=== PATIENT | male | born 1960 | race Caucasian/White ===

== ENCOUNTER 2017-07-09 02:53 | Inpatient (IN) | payer OTHER ==
[~2017-07-09] VITALS: Ht 172.7 cm; Wt 81.0 kg
[2017-07-09 03:41] LABS: HEMATOCRIT 46.4 % (38.0-50.0); MCH 30.1 PG (29.0-34.0); MCHC 34.3 G/DL (30.0-36.0); MCV 87.9 FL (86-99); MEAN PLAT.VOLUME 10.2 uM^3 (9.0-12.4); PLATELET COUNT 181 K/uL (156-360); RBC DIS.WIDTH-CV 12.7 % (11.8-14.6); RBC DIS.WIDTH-SD 40.8 % (39-53); RED BLOOD COUNT 5.28 M/uL (4.00-5.50); WHITE BLOOD COUNT 14.2 K/uL (4.1-10.2)
[2017-07-09 03:49] LABS: D-DIMER ELISA < 150.00 ng/mLDDU (<230)
[2017-07-09 03:55] LABS: CHLORIDE 105 mEq/L (99-109); POTASSIUM 4.1 mEq/L (3.7-5.4); SODIUM 140 mEq/L (136-147)
[2017-07-09 03:57] LABS: GLUCOSE 127 mg/dL (70-99)
[2017-07-09 03:59] LABS: ANION GAP 10 MEQ/L (2-14); TOTAL BILIRUBIN 1.7 mg/dL (0.0-1.0)
[2017-07-09 04:01] LABS: ALKALINE PHOSPHATASE 57 IU/L (3-129); GFR ESTIMATE (CALCULATED) > 59 mL/min/
[2017-07-09 04:02] LABS: UREA NITROGEN (BUN) 11 mg/dL (9-23)
[2017-07-09] MEDS ORDERED: ADVAIR 500/501 DISK IH (05:39)
[2017-07-09] MEDS ORDERED: GEMFIBROZIL600 MG PO (05:39)
[2017-07-09] MEDS ORDERED: LOSARTAN-HCTZ1 EAC2 PO (05:39)
[2017-07-09] MEDS ORDERED: METFORMIN HCL500 MG PO (05:39)
[2017-07-09] MEDS ORDERED: PROAIR HFA8.5 GM IH (05:39)
[2017-07-09 07:07] LABS: ABS NEUTROPHIL COUNT 11.6; EOSINOPHIL ABS CT 0; LYMPHOCYTES 13.1 % (15.0-45.0); PLAT.SUFFICIENCY ADEQUATE; SEG.NEUTROPHILS 81.6 % (46.0-76.0)
[2017-07-09 07:23] LABS: TROP-I INTERPRETATION NEGATIVE; TROPONIN-I 0.01 ng/mL (0.0-0.30)
[2017-07-09 09:03] LABS: POINT-OF-CARE METER ID UU13113747
[2017-07-09] MEDS ORDERED: ALEVE220 M2 PO (10:19)
[2017-07-09] MEDS ORDERED: AUGMENTIN875 MG PO (10:19)
[2017-07-09] MEDS ORDERED: MEDROL DOSEPAK4 MG PO (10:19)
[2017-07-09] MEDS ORDERED: CRANBERRY TABL1 EACH PO (10:20)
[2017-07-09] MEDS ORDERED: LO-DOSE ASPIRIN81 M2 PO (10:20)
[2017-07-09 11:34] VITALS: BP 152/93
[2017-07-09 11:37] LABS: POINT-OF-CARE METER ID UU14174225
[2017-07-09 12:30] LABS: TROP-I INTERPRETATION NEGATIVE; TROPONIN-I 0.01 ng/mL (0.0-0.30)
[2017-07-09 14:48] LABS: MAGNESIUM 1.8 mg/dl (1.3-2.7)
[2017-07-09 16:17] VITALS: BP 151/86
[2017-07-09 17:41] LABS: POINT-OF-CARE METER ID UU14174225
[2017-07-09 18:04] LABS: TROP-I INTERPRETATION NEGATIVE; TROPONIN-I 0.01 ng/mL (0.0-0.30)
[2017-07-09 19:38] VITALS: BP 148/93
[2017-07-09 20:56] LABS: POINT-OF-CARE METER ID UU14188625
[2017-07-10 00:11] VITALS: BP 130/81
[2017-07-10 03:37] VITALS: BP 143/83
[2017-07-10 06:24] LABS: EOSINOPHIL (%) 0 % (0-5); HEMATOCRIT 48.3 % (38.0-50.0); IMMATURE GRANULOCYTE (%) 0.5 % (0.0-0.7); IMMATURE GRANULOCYTE COUNT 0.1 K/uL; INSTRUMENT ABS NEUTROPHIL CT 10.9 K/uL; LYMPHOCYTE COUNT 0.8 K/uL (1.0-2.8); MCH 29.4 PG (29.0-34.0); MCHC 33.3 G/DL (30.0-36.0); MCV 88.3 FL (86-99); MEAN PLAT.VOLUME 10.5 uM^3 (9.0-12.4); MONOCYTE (%) 3.6 % (3-12); MONOCYTE COUNT 0.4 K/uL (0-0.8); NEUTROPHIL (%) 88.9 % (45-76); NEUTROPHIL COUNT 10.9 K/uL (1.8-6.4); PLATELET COUNT 206 K/uL (156-360); RBC DIS.WIDTH-CV 12.8 % (11.8-14.6); RBC DIS.WIDTH-SD 41.4 % (39-53); RED BLOOD COUNT 5.47 M/uL (4.00-5.50); WHITE BLOOD COUNT 12.2 K/uL (4.1-10.2)
[2017-07-10 07:00] LABS: ANION GAP 14 MEQ/L (2-14); CHLORIDE 105 MEQ/L (99-109); GFR ESTIMATE (CALCULATED) > 59 mL/min/; GLUCOSE 147 mg/dL (70-99); POTASSIUM 4.1 MEQ/L (3.7-5.4); SAMPLE HEMOLYSIS CHECK 0; SAMPLE ICTERIC CHECK 0; SAMPLE LIPEMIA CHECK 0; SODIUM 140 MEQ/L (136-147); UREA NITROGEN (BUN) 17 mg/dL (9-23)
[2017-07-10 07:20] VITALS: BP 143/88
[2017-07-10 11:44] LABS: POINT-OF-CARE METER ID UU14188625
[2017-07-10 12:12] VITALS: BP 129/80
[2017-07-10 15:28] VITALS: BP 125/82
[2017-07-10 17:01] LABS: POINT-OF-CARE METER ID UU13113717
[2017-07-10 19:15] VITALS: BP 137/90
[2017-07-10 21:49] LABS: POINT-OF-CARE METER ID UU13113717
[2017-07-11 03:28] VITALS: BP 113/67
[2017-07-11 07:10] LABS: EOSINOPHIL (%) 0 % (0-5); HEMATOCRIT 43.3 % (38.0-50.0); IMMATURE GRANULOCYTE (%) 0.6 % (0.0-0.7); IMMATURE GRANULOCYTE COUNT 0.1 K/uL; INSTRUMENT ABS NEUTROPHIL CT 10.9 K/uL; LYMPHOCYTE COUNT 0.8 K/uL (1.0-2.8); MCH 30.2 PG (29.0-34.0); MCHC 33.7 G/DL (30.0-36.0); MCV 89.6 FL (86-99); MEAN PLAT.VOLUME 10.9 uM^3 (9.0-12.4); MONOCYTE (%) 5.2 % (3-12); MONOCYTE COUNT 0.7 K/uL (0-0.8); NEUTROPHIL (%) 87.6 % (45-76); NEUTROPHIL COUNT 10.9 K/uL (1.8-6.4); PLATELET COUNT 189 K/uL (156-360); RBC DIS.WIDTH-CV 13.1 % (11.8-14.6); RBC DIS.WIDTH-SD 42.8 % (39-53); RED BLOOD COUNT 4.83 M/uL (4.00-5.50); WHITE BLOOD COUNT 12.4 K/uL (4.1-10.2)
[2017-07-11 07:48] VITALS: BP 125/73
[2017-07-11 08:35] LABS: CHLORIDE 104 MEQ/L (99-109); GFR ESTIMATE (CALCULATED) > 59 mL/min/; GLUCOSE 122 mg/dL (70-99); SODIUM 138 MEQ/L (136-147)
[2017-07-11 08:44] LABS: MAGNESIUM 2.4 mg/dl (1.3-2.7); POTASSIUM 5.3 MEQ/L (3.7-5.4); UREA NITROGEN (BUN) 28 mg/dL (9-23)
[2017-07-11 09:05] LABS: POINT-OF-CARE METER ID UU14174225
[2017-07-11 11:38] VITALS: BP 121/87
[2017-07-11 12:14] LABS: POINT-OF-CARE METER ID UU14188625
[2017-07-11 16:24] LABS: POINT-OF-CARE METER ID UU14188625
[2017-07-11 19:40] VITALS: BP 111/69
[2017-07-11 21:29] LABS: POINT-OF-CARE METER ID UU14188625
[2017-07-11 23:33] VITALS: BP 112/73
[2017-07-12 04:06] VITALS: BP 120/81
[2017-07-12 07:22] LABS: POINT-OF-CARE METER ID UU14174225
[2017-07-12 07:32] VITALS: BP 127/79
[2017-07-12] MEDS ORDERED: METOPROLOL SUCC50 MG PO (11:26)
[2017-07-12] MEDS ORDERED: NICOTINE PATCH1 EAC2 TD (11:26)
[2017-07-12] MEDS ORDERED: PREDNISONE20 MG PO (11:26)
[2017-07-12 11:37] LABS: POINT-OF-CARE METER ID UU13113717
== END 2017-07-12 13:31 | disposition home or self-care (01) | DRG 191 ==
LOC: EME 02:53 → 5SOUTH 05:10 → EDOF 05:10 → ENRESERV 05:11 → 5SOUTH 11:08
PROVIDERS: Emergency Medicine; Hospitalist; Internal Medicine; Physician Assistant Medical
DX: J44.1 Chronic obstructive pulmonary disease with (acute) exacerbation (principal); J45.901 Unspecified asthma with (acute) exacerbation; I47.2 Ventricular tachycardia; R09.02 Hypoxemia; I10 Essential (primary) hypertension; E78.5 Hyperlipidemia, unspecified; E11.9 Type 2 diabetes mellitus without complications; F17.210 Nicotine dependence, cigarettes, uncomplicated; J30.2 Other seasonal allergic rhinitis; Z60.2 Problems related to living alone; Z79.51 Long term (current) use of inhaled steroids; M54.9 Dorsalgia, unspecified; Z82.49 Family history of ischemic heart disease and other diseases of the circulatory system; Z79.84 Long term (current) use of oral hypoglycemic drugs; Z79.82 Long term (current) use of aspirin
CPT/HCPCS: 71020; 80048; 80053; 82948; 83605; 83735; 84100; 84484; 85007; 85025; 85027; 85379; 87040; 87070; 87205; 93005; 93306; 94640; 94640 76; 94644; 99202; 99281; 99285; J0295; J0696; J1650; J1815; J2930; J7030; J7050; J7512

== ENCOUNTER 2017-08-12 09:00 | Inpatient (IN) | payer OTHER ==
[~2017-08-12] VITALS: Ht 172.7 cm; Wt 74.7 kg
[~2017-08-12 09:00] MED LIST: ADVAIR 500/501 DISK IH; ALEVE220 M2 PO; AUGMENTIN875 MG PO; CARVEDILOL3.125 MG PO; CRANBERRY TABL1 EACH PO; ENTRESTO 24 MG1 EACH PO; GEMFIBROZIL600 MG PO; LO-DOSE ASPIRIN81 M2 PO; LOSARTAN-HCTZ1 EAC2 PO; MEDROL DOSEPAK4 MG PO; METFORMIN HCL500 MG PO; METOPROLOL SUCC50 MG PO; NICOTINE PATCH1 EAC2 TD; PEPCID AC10 MG PO; PREDNISONE20 MG PO; PROAIR HFA8.5 GM IH; SPIRIVA RESPIMAT4 GM IH
[2017-08-12 10:22] LABS: POINT-OF-CARE METER ID UU13113696
[2017-08-12 15:00] VITALS: BP 129/68
[2017-08-12 19:30] VITALS: BP 136/66
[2017-08-12 23:30] VITALS: BP 137/72
[2017-08-13] VITALS (7 sets, daily range): BP systolic 120–194; BP diastolic 76–106
[2017-08-13 06:50] LABS: BASOPHIL COUNT 0.1 K/uL (0-0.1); EOSINOPHIL (%) 1.3 % (0-5); EOSINOPHIL COUNT 0.1 K/uL (0-0.3); HEMATOCRIT 47.5 % (38.0-50.0); IMMATURE GRANULOCYTE (%) 0.4 % (0.0-0.7); INSTRUMENT ABS NEUTROPHIL CT 6.1 K/uL; LYMPHOCYTE COUNT 1.8 K/uL (1.0-2.8); MCH 30.3 PG (29.0-34.0); MCHC 33.9 G/DL (30.0-36.0); MCV 89.5 FL (86-99); MEAN PLAT.VOLUME 10.3 uM^3 (9.0-12.4); MONOCYTE (%) 10.2 % (3-12); MONOCYTE COUNT 0.9 K/uL (0-0.8); NEUTROPHIL (%) 67.1 % (45-76); NEUTROPHIL COUNT 6.1 K/uL (1.8-6.4); PLATELET COUNT 205 K/uL (156-360); RBC DIS.WIDTH-CV 13.3 % (11.8-14.6); RBC DIS.WIDTH-SD 42.9 % (39-53); RED BLOOD COUNT 5.31 M/uL (4.00-5.50)
[2017-08-13 07:15] LABS: ANION GAP 8 MEQ/L (2-14); CHLORIDE 110 MEQ/L (99-109); GFR ESTIMATE (CALCULATED) > 59 mL/min/ (58.99-99999); GLUCOSE 96 mg/dL (70-99); POTASSIUM 4.5 MEQ/L (3.7-5.4); SAMPLE HEMOLYSIS CHECK 0; SAMPLE ICTERIC CHECK 0; SAMPLE LIPEMIA CHECK 0; SODIUM 142 MEQ/L (136-147); UREA NITROGEN (BUN) 9 mg/dL (9-23)
[2017-08-13] MEDS ORDERED: TAMSULOSIN HCL0.4 MG PO (09:36)
[2017-08-13] MEDS ORDERED: NITROSTAT0.4 MG SL (09:36)
[2017-08-13] MEDS ORDERED: ATORVASTATIN CA40 MG PO (09:36)
[2017-08-13] MEDS ORDERED: CLOPIDOGREL75 MG PO (09:36)
[2017-08-13 17:55] LABS: POINT-OF-CARE METER ID UU14314088
[2017-08-13 19:48] LABS: COLOR RED ((YELLOW))
[2017-08-13 19:49] LABS: LEUKOCYTES TRACE; NITRITE NEGATIVE; SPECIFIC GRAVITY 1.007 (1.000-1.030)
[2017-08-13 19:50] LABS: ADD MIUA? YES; BILIRUBIN NEGATIVE; BLOOD LARGE; GLUCOSE (STRIP) 50; KETONES NEGATIVE; PH, URINE 6.5 (5-8); PROTEIN (STRIP) 100; UROBILINOGEN 0.2 MG/DL (0.2-1.0)
[2017-08-13 20:13] LABS: BACTERIA RARE /HPF; EPITHELIAL CELLS RARE /HPF; MUCUS RARE /LPF; RED BLOOD CELLS TNTC /HPF (0-5)
[2017-08-13 20:59] LABS: POINT-OF-CARE METER ID UU14314088
[2017-08-14 03:22] VITALS: BP 148/83
[2017-08-14 05:31] LABS: MCH 29.6 PG (29.0-34.0); MCHC 33.9 G/DL (30.0-36.0); MCV 87.2 FL (86-99); PLATELET COUNT 162 K/uL (156-360); RBC DIS.WIDTH-CV 13.1 % (11.8-14.6); RBC DIS.WIDTH-SD 41.2 % (39-53); WHITE BLOOD COUNT 7.9 K/uL (4.1-10.2)
[2017-08-14 05:57] LABS: ANION GAP 10 MEQ/L (2-14); CHLORIDE 109 MEQ/L (99-109); GFR ESTIMATE (CALCULATED) > 59 mL/min/ (58.99-99999); GLUCOSE 113 mg/dL (70-99); POTASSIUM 3.8 MEQ/L (3.7-5.4); SAMPLE HEMOLYSIS CHECK 0; SAMPLE ICTERIC CHECK 0; SAMPLE LIPEMIA CHECK 0; SODIUM 142 MEQ/L (136-147); UREA NITROGEN (BUN) 9 mg/dL (9-23)
[2017-08-14 07:44] LABS: POINT-OF-CARE METER ID UU13113781
[2017-08-14 08:40] VITALS: BP 134/80
[2017-08-14 11:44] LABS: POINT-OF-CARE METER ID UU13113781
[2017-08-14] MEDS ORDERED: FINASTERIDE5 MG PO (12:24)
[2017-08-14 12:33] VITALS: BP 142/95
== END 2017-08-14 14:00 | disposition home or self-care (01) | DRG 982 ==
LOC: CATH 09:00 → ENRESERV 11:55 → 4EAST 12:33 → ENRESERV 14:24 → 4EAST 08-13 15:03 → ENPENDDIS 08-14 → 4EAST 08-14 14:00
PROVIDERS: Internal Medicine; Internal Medicine Interventional Cardiology
DX: S37.39XA Other injury of urethra, initial encounter (principal); R31.0 Gross hematuria; Y84.6 Urinary catheterization as the cause of abnormal reaction of the patient, or of later complication, without mention of misadventure at the time of the procedure; Y73.1 Therapeutic (nonsurgical) and rehabilitative gastroenterology and urology devices associated with adverse incidents; Y92.239 Unspecified place in hospital as the place of occurrence of the external cause; I47.2 Ventricular tachycardia; I11.0 Hypertensive heart disease with heart failure; I50.9 Heart failure, unspecified; I42.0 Dilated cardiomyopathy; I27.20 Pulmonary hypertension, unspecified; I25.10 Atherosclerotic heart disease of native coronary artery without angina pectoris; J44.9 Chronic obstructive pulmonary disease, unspecified; I25.5 Ischemic cardiomyopathy; I34.0 Nonrheumatic mitral (valve) insufficiency; R94.39 Abnormal result of other cardiovascular function study; K21.9 Gastro-esophageal reflux disease without esophagitis; E78.5 Hyperlipidemia, unspecified; N40.1 Benign prostatic hyperplasia with lower urinary tract symptoms; R33.8 Other retention of urine; F17.200 Nicotine dependence, unspecified, uncomplicated; Z79.82 Long term (current) use of aspirin; Z79.84 Long term (current) use of oral hypoglycemic drugs
CPT/HCPCS: 80048; 81003; 82948; 85025; 85027; 85347; 87086; 93005; 94640; 94640 76; C1725; C1769; C1874; C1887; G0378; J0153; J1644; J1815; J2250; J3010; J7030

== ENCOUNTER 2017-08-18 14:21 | Observation (INO) | payer OTHER ==
[~2017-08-18] VITALS: Ht 172.7 cm; Wt 79.8 kg
[~2017-08-18 14:21] MED LIST changes: +ATORVASTATIN CA40 MG PO; +CLOPIDOGREL75 MG PO; +FINASTERIDE5 MG PO; +NITROSTAT0.4 MG SL; +TAMSULOSIN HCL0.4 MG PO
[2017-08-18 17:09] LABS: HEMATOCRIT 34.8 % (38.0-50.0); MCH 31.1 PG (29.0-34.0); MCHC 35.3 G/DL (30.0-36.0); MCV 88.1 FL (86-99); MEAN PLAT.VOLUME 10.1 uM^3 (9.0-12.4); PLATELET COUNT 186 K/uL (156-360); RBC DIS.WIDTH-CV 13.6 % (11.8-14.6); RBC DIS.WIDTH-SD 43.5 % (39-53); RED BLOOD COUNT 3.95 M/uL (4.00-5.50); WHITE BLOOD COUNT 11.2 K/uL (4.1-10.2)
[2017-08-18 17:21] LABS: CHLORIDE 106 mEq/L (99-109); POTASSIUM 3.7 mEq/L (3.7-5.4); SODIUM 139 mEq/L (136-147)
[2017-08-18 17:24] LABS: ANION GAP 7 MEQ/L (2-14)
[2017-08-18 17:26] LABS: GFR ESTIMATE (CALCULATED) > 59 mL/min/ (58.99-99999); GLUCOSE 100 mg/dL (70-99)
[2017-08-18 17:27] LABS: UREA NITROGEN (BUN) 17 mg/dL (9-23)
[2017-08-18 17:30] LABS: INTER. NORMALIZED RATIO 1.1; PROTHROMBIN TIME 12.9 SEC (10.2-12.9)
[2017-08-18 17:32] LABS: PTT 29.4 SEC (25-37)
[2017-08-18] MEDS ORDERED: PLAVIX75 MG PO (19:01)
[2017-08-18] MEDS ORDERED: PROSCAR5 MG PO (19:02)
[2017-08-18 22:38] VITALS: BP 136/74
[2017-08-19 00:38] LABS: POINT-OF-CARE METER ID UU14302475
[2017-08-19 00:43] LABS: HEMATOCRIT 33.5 % (38.0-50.0); MCV 90.1 FL (86-99)
[2017-08-19 00:50] LABS: INTER. NORMALIZED RATIO 1.1; PROTHROMBIN TIME 12.5 SEC (10.2-12.9)
[2017-08-19 00:52] LABS: PTT 30.3 SEC (25-37)
[2017-08-19 08:00] VITALS: BP 132/70
[2017-08-19 08:17] LABS: POINT-OF-CARE METER ID UU13113700
[2017-08-19 08:36] LABS: HEMATOCRIT 34.1 % (38.0-50.0); MCV 89.7 FL (86-99)
== END 2017-08-19 10:17 | disposition home or self-care (01) ==
LOC: EME 14:21 → EDOF 21:21 → ENRESERV 21:25 → 5WEST 22:30
PROVIDERS: Internal Medicine; Physician Assistant; Physician Assistant Medical
PROC: 0T2BX0Z Change Drainage Device in Bladder, External Approach (ICD-10-PCS; principal; 2017-08-18)
DX: R31.0 Gross hematuria (principal); N40.1 Benign prostatic hyperplasia with lower urinary tract symptoms; R33.8 Other retention of urine; I25.10 Atherosclerotic heart disease of native coronary artery without angina pectoris; Z95.5 Presence of coronary angioplasty implant and graft; I25.5 Ischemic cardiomyopathy; I34.0 Nonrheumatic mitral (valve) insufficiency; I27.20 Pulmonary hypertension, unspecified; E11.9 Type 2 diabetes mellitus without complications; E78.5 Hyperlipidemia, unspecified; I11.0 Hypertensive heart disease with heart failure; I50.22 Chronic systolic (congestive) heart failure; J44.9 Chronic obstructive pulmonary disease, unspecified; Z87.891 Personal history of nicotine dependence; Z82.49 Family history of ischemic heart disease and other diseases of the circulatory system; Z82.0 Family history of epilepsy and other diseases of the nervous system
CPT/HCPCS: 80048; 81003; 82948; 85014; 85018; 85027; 85610; 85730; 94640; 94640 76; 99202; 99281; 99285; G0378; J1815

== ENCOUNTER 2017-08-19 16:15 | Inpatient (IN) | payer OTHER ==
[~2017-08-19] VITALS: Ht 172.7 cm; Wt 79.7 kg
[~2017-08-19 16:15] MED LIST changes: +PLAVIX75 MG PO; +PROSCAR5 MG PO
[2017-08-19 17:22] LABS: HEMATOCRIT 32.7 % (38.0-50.0); HEMOGLOBIN 11.4 G/DL (12.5-16.6); MCH 31.1 PG (29.0-34.0); MCHC 34.9 G/DL (30.0-36.0); MCV 89.3 FL (86-99); PLATELET COUNT 180 K/uL (156-360); RBC DIS.WIDTH-CV 13.8 % (11.8-14.6); RBC DIS.WIDTH-SD 44.8 % (39-53); RED BLOOD COUNT 3.66 M/uL (4.00-5.50); WHITE BLOOD COUNT 13.1 K/uL (4.1-10.2)
[2017-08-19 17:30] LABS: CHLORIDE 106 mEq/L (99-109); SODIUM 139 mEq/L (136-147)
[2017-08-19 17:32] LABS: GLUCOSE 102 mg/dL (70-99)
[2017-08-19 17:36] LABS: CREATININE 0.8 mg/dL (0.6-1.3); GFR ESTIMATE (CALCULATED) > 59 mL/min/ (58.99-99999)
[2017-08-19 17:37] LABS: UREA NITROGEN (BUN) 14 mg/dL (9-23)
[2017-08-19 21:13] VITALS: BP 139/82
[2017-08-20 05:25] LABS: HEMATOCRIT 29.3 % (38.0-50.0); HEMOGLOBIN 9.9 G/DL (12.5-16.6); MCH 29.8 PG (29.0-34.0); MCHC 33.8 G/DL (30.0-36.0); MCV 88.3 FL (86-99); PLATELET COUNT 165 K/uL (156-360); RBC DIS.WIDTH-CV 13.8 % (11.8-14.6); RED BLOOD COUNT 3.32 M/uL (4.00-5.50); WHITE BLOOD COUNT 8.9 K/uL (4.1-10.2)
[2017-08-20 05:53] LABS: INTER. NORMALIZED RATIO 1.2
[2017-08-20 08:30] VITALS: BP 114/66; BP 143/85
[2017-08-20 11:47] VITALS: BP 110/64
[2017-08-20 14:30] LABS: HEMATOCRIT 29.2 % (38.0-50.0); MCV 90.4 FL (86-99)
[2017-08-20 16:36] VITALS: BP 103/64
[2017-08-20 20:00] VITALS: BP 113/60
[2017-08-20 20:04] LABS: HEMATOCRIT 30.8 % (38.0-50.0); HEMOGLOBIN 10.4 G/DL (12.5-16.6); MCV 90.1 FL (86-99)
[2017-08-20 23:06] VITALS: BP 115/59
[2017-08-21 03:16] VITALS: BP 148/65
[2017-08-21 07:15] LABS: HEMATOCRIT 29.9 % (38.0-50.0); HEMOGLOBIN 10.2 G/DL (12.5-16.6); MCV 90.1 FL (86-99)
[2017-08-21 08:30] VITALS: BP 132/75
[2017-08-21 11:31] VITALS: BP 122/60
== END 2017-08-21 14:30 | disposition home or self-care (01) | DRG 696 ==
LOC: EME 16:15 → EDOF 18:01 → ENRESERV 18:07 → 5WEST 21:11 → ENRESERV 08-20 09:39 → CANRESERV 08-20 09:39 → 5WEST 08-21 14:30
PROVIDERS: Emergency Medicine; Hospitalist; Nurse Practitioner Family
DX: R31.0 Gross hematuria (principal); D62 Acute posthemorrhagic anemia; T45.525A Adverse effect of antithrombotic drugs, initial encounter; N32.89 Other specified disorders of bladder; J44.1 Chronic obstructive pulmonary disease with (acute) exacerbation; I27.20 Pulmonary hypertension, unspecified; I25.5 Ischemic cardiomyopathy; I11.0 Hypertensive heart disease with heart failure; I50.22 Chronic systolic (congestive) heart failure; E78.5 Hyperlipidemia, unspecified; E11.9 Type 2 diabetes mellitus without complications; Z95.5 Presence of coronary angioplasty implant and graft; N40.1 Benign prostatic hyperplasia with lower urinary tract symptoms; R33.8 Other retention of urine; D64.9 Anemia, unspecified; F17.200 Nicotine dependence, unspecified, uncomplicated; I25.10 Atherosclerotic heart disease of native coronary artery without angina pectoris; I25.2 Old myocardial infarction; K21.9 Gastro-esophageal reflux disease without esophagitis; I08.1 Rheumatic disorders of both mitral and tricuspid valves; R00.0 Tachycardia, unspecified
CPT/HCPCS: 36415; 80048; 81003; 82948; 85014; 85018; 85027; 85610; 85730; 86850; 86900; 86901; 86920; 94640; 94640 76; 99202; 99281; 99285; G0378; J1815; J7030

== ENCOUNTER 2017-11-08 15:33 | Observation (INO) | payer SELFPAY ==
[~2017-11-08] VITALS: Ht 172.7 cm; Wt 76.3 kg
[~2017-11-08 15:33] MED LIST changes: -CARVEDILOL3.125 MG PO; +COREG12.5 M1 PO
[2017-11-08 16:38] LABS: HEMATOCRIT 39.9 % (38.0-50.0); HEMOGLOBIN 13.4 G/DL (12.5-16.6); MCH 27.7 PG (29.0-34.0); MCHC 33.6 G/DL (30.0-36.0); MCV 82.4 FL (86-99); PLATELET COUNT 226 K/uL (156-360); RBC DIS.WIDTH-CV 15.3 % (11.8-14.6); RBC DIS.WIDTH-SD 46.4 % (39-53); RED BLOOD COUNT 4.84 M/uL (4.00-5.50)
[2017-11-08 16:49] LABS: CHLORIDE 107 mEq/L (99-109); POTASSIUM 3.7 mEq/L (3.7-5.4); SODIUM 140 mEq/L (136-147)
[2017-11-08 16:51] LABS: GLUCOSE 98 mg/dL (70-99)
[2017-11-08 16:55] LABS: CREATININE 0.8 mg/dL (0.6-1.3); GFR ESTIMATE (CALCULATED) > 59 mL/min/ (58.99-99999)
[2017-11-08 16:56] LABS: UREA NITROGEN (BUN) 12 mg/dL (9-23)
[2017-11-08 17:46] LABS: TROP-I INTERPRETATION NEGATIVE; TROPONIN-I < 0.01 ng/mL (0.0-0.30)
[2017-11-08 21:09] LABS: TROP-I INTERPRETATION NEGATIVE; TROPONIN-I 0.01 ng/mL (0.0-0.30)
[2017-11-08] MEDS ORDERED: GEMFIBROZIL600 MG PO (21:58)
[2017-11-08] MEDS ORDERED: FINASTERIDE5 MG PO (22:00)
[2017-11-08] MEDS ORDERED: CLOPIDOGREL75 MG PO (22:01)
[2017-11-08] MEDS ORDERED: CENTRUM MEN'S1 EACH PO (22:11)
[2017-11-08] MEDS ORDERED: LO-DOSE ASPIRIN81 M2 PO (22:11)
[2017-11-08] MEDS ORDERED: ALLERGY4 MG PO (22:13)
[2017-11-08 22:53] LABS: MAGNESIUM 2.2 mg/dL (1.3-2.7)
[2017-11-08 23:21] VITALS: BP 140/83
[2017-11-09 05:08] VITALS: BP 120/73
[2017-11-09 06:27] LABS: HEMATOCRIT 39.5 % (38.0-50.0); HEMOGLOBIN 12.6 G/DL (12.5-16.6); MCH 26.6 PG (29.0-34.0); MCHC 31.9 G/DL (30.0-36.0); MCV 83.5 FL (86-99); PLATELET COUNT 191 K/uL (156-360); RBC DIS.WIDTH-CV 15.3 % (11.8-14.6); RBC DIS.WIDTH-SD 46.5 % (39-53); RED BLOOD COUNT 4.73 M/uL (4.00-5.50); WHITE BLOOD COUNT 5.4 K/uL (4.1-10.2)
[2017-11-09 06:50] LABS: CHLORIDE 109 MEQ/L (99-109); CREATININE 0.7 MG/DL (0.6-1.3); GFR ESTIMATE (CALCULATED) > 59 mL/min/ (58.99-99999); POTASSIUM 4.3 MEQ/L (3.7-5.4); SODIUM 140 MEQ/L (136-147); UREA NITROGEN (BUN) 12 mg/dL (9-23)
[2017-11-09 07:00] LABS: GLUCOSE 169 mg/dL (70-99)
[2017-11-09 07:33] VITALS: BP 119/75
[2017-11-09] MEDS ORDERED: NITROSTAT0.4 MG SL (11:39)
[2017-11-09] MEDS ORDERED: LO-DOSE ASPIRIN81 M2 PO (11:39)
[2017-11-09] MEDS ORDERED: AZITHROMYCIN500 M1 PO (11:39)
[2017-11-09] MEDS ORDERED: PREDNISONE20 MG PO (11:39)
[2017-11-09] MEDS ORDERED: METFORMIN HCL500 MG PO (11:39)
[2017-11-09] MEDS ORDERED: COREG12.5 M1 PO (11:39)
[2017-11-09] MEDS ORDERED: PROAIR HFA8.5 GM IH (11:39)
[2017-11-09] MEDS ORDERED: CLOPIDOGREL75 MG PO (11:39)
[2017-11-09] MEDS ORDERED: ADVAIR 500/501 DISK IH (11:39)
[2017-11-09] MEDS ORDERED: PEPCID AC10 MG PO (11:39)
[2017-11-09] MEDS ORDERED: ATORVASTATIN CA40 MG PO (11:39)
[2017-11-09] MEDS ORDERED: TAMSULOSIN HCL0.4 MG PO (11:39)
[2017-11-09] MEDS ORDERED: FUROSEMIDE20 MG PO (11:39)
[2017-11-09] MEDS ORDERED: SPIRIVA RESPIMAT4 GM IH (11:39)
[2017-11-09 12:03] VITALS: BP 121/67
[2017-11-09 16:43] VITALS: BP 131/74
== END 2017-11-09 17:10 | disposition home or self-care (01) ==
LOC: EME 15:33 → 5WEST 22:08 → EDOF 22:08 → ENRESERV 22:09 → 5WEST 22:52
PROVIDERS: Hospitalist; Physician Assistant; Physician Assistant Medical
DX: J44.1 Chronic obstructive pulmonary disease with (acute) exacerbation (principal); I11.0 Hypertensive heart disease with heart failure; I50.23 Acute on chronic systolic (congestive) heart failure; Z91.14 Patient's other noncompliance with medication regimen; I25.5 Ischemic cardiomyopathy; I25.10 Atherosclerotic heart disease of native coronary artery without angina pectoris; Z95.5 Presence of coronary angioplasty implant and graft; F17.210 Nicotine dependence, cigarettes, uncomplicated; E78.5 Hyperlipidemia, unspecified; E11.9 Type 2 diabetes mellitus without complications; R94.31 Abnormal electrocardiogram [ECG] [EKG]; I34.0 Nonrheumatic mitral (valve) insufficiency; I27.20 Pulmonary hypertension, unspecified; N40.0 Benign prostatic hyperplasia without lower urinary tract symptoms; Z82.49 Family history of ischemic heart disease and other diseases of the circulatory system; Z79.84 Long term (current) use of oral hypoglycemic drugs; Z79.82 Long term (current) use of aspirin
CPT/HCPCS: 71046; 71275; 80048; 82948; 83735; 83880; 84484; 85027; 85379; 93005; 94640; 94640 76; 99202; 99281; 99285; G0378; J1644; J1940; J2920; J7030; J7512

== ENCOUNTER 2017-12-21 03:51 | Emergency (ER) | payer OTHER ==
[~2017-12-21] VITALS: Ht 172.7 cm; Wt 80.6 kg
[~2017-12-21 03:51] MED LIST changes: +ALLERGY4 MG PO; +AZITHROMYCIN500 M1 PO; +CENTRUM MEN'S1 EACH PO; +FUROSEMIDE20 MG PO
[2017-12-21 05:02] LABS: HEMATOCRIT 43.9 % (38.0-50.0); HEMOGLOBIN 14.6 G/DL (12.5-16.6); MCH 27.4 PG (29.0-34.0); MCHC 33.3 G/DL (30.0-36.0); MCV 82.4 FL (86-99); PLATELET COUNT 185 K/uL (156-360); RBC DIS.WIDTH-CV 18.1 % (11.8-14.6); RBC DIS.WIDTH-SD 53.7 % (39-53); RED BLOOD COUNT 5.33 M/uL (4.00-5.50); WHITE BLOOD COUNT 11.6 K/uL (4.1-10.2)
[2017-12-21 05:12] LABS: CHLORIDE 109 mEq/L (99-109); POTASSIUM 4.4 mEq/L (3.7-5.4); SODIUM 141 mEq/L (136-147)
[2017-12-21 05:14] LABS: GLUCOSE 115 mg/dL (70-99)
[2017-12-21 05:18] LABS: CREATININE 0.8 mg/dL (0.6-1.3); GFR ESTIMATE (CALCULATED) > 59 mL/min/ (58.99-99999)
[2017-12-21 05:19] LABS: UREA NITROGEN (BUN) 8 mg/dL (9-23)
[2017-12-21 05:26] LABS: APPEARANCE CLEAR ((CLEAR)); BILIRUBIN NEGATIVE; BLOOD SMALL; COLOR STRAW ((YELLOW)); GLUCOSE (STRIP) NEGATIVE; KETONES NEGATIVE; LEUKOCYTES NEGATIVE; NITRITE NEGATIVE; PROTEIN (STRIP) NEGATIVE; SPECIFIC GRAVITY 1.005 (1.000-1.030); UROBILINOGEN 0.2 MG/DL (0.2-1.0)
[2017-12-21 05:29] LABS: BACTERIA NONE SEEN /HPF; EPITHELIAL CELLS NONE SEEN /HPF; MUCUS TRACE /LPF; RED BLOOD CELLS 0-5 /HPF (0-5); UCUL ADDED? NO; WHITE BLOOD CELLS 0-5 /HPF (0-5)
[2017-12-21 06:21] VITALS: BP 143/85
== END 2017-12-21 06:24 | disposition home or self-care (01) ==
LOC: EME 03:51
PROVIDERS: Emergency Medicine
PROC: 0T9B70Z Drainage of Bladder with Drainage Device, Via Natural or Artificial Opening (ICD-10-PCS; principal; 2017-12-21)
DX: N40.1 Benign prostatic hyperplasia with lower urinary tract symptoms (principal); R39.15 Urgency of urination; R33.9 Retention of urine, unspecified; I10 Essential (primary) hypertension; J44.9 Chronic obstructive pulmonary disease, unspecified; E78.5 Hyperlipidemia, unspecified; E11.9 Type 2 diabetes mellitus without complications; I25.2 Old myocardial infarction; Z95.5 Presence of coronary angioplasty implant and graft; Z79.02 Long term (current) use of antithrombotics/antiplatelets; Z79.82 Long term (current) use of aspirin; Z79.84 Long term (current) use of oral hypoglycemic drugs; F17.200 Nicotine dependence, unspecified, uncomplicated
CPT/HCPCS: 80048; 81003; 85027; 99281; 99284

== ENCOUNTER 2018-02-26 03:48 | Emergency (ER) | payer OTHER ==
[~2018-02-26] VITALS: Ht 172.7 cm; Wt 76.7 kg
[2018-02-26 04:22] LABS: APPEARANCE CLEAR ((CLEAR)); BILIRUBIN NEGATIVE; BLOOD NEGATIVE; COLOR STRAW ((YELLOW)); GLUCOSE (STRIP) NEGATIVE; KETONES NEGATIVE; LEUKOCYTES NEGATIVE; NITRITE NEGATIVE; PROTEIN (STRIP) NEGATIVE; SPECIFIC GRAVITY 1.005 (1.000-1.030); UCUL ADDED? NO; UROBILINOGEN 0.2 MG/DL (0.2-1.0)
[2018-02-26 05:56] VITALS: BP 147/90
== END 2018-02-26 05:57 | disposition home or self-care (01) ==
LOC: EME 03:48
PROVIDERS: Physician Assistant
PROC: 0T9B70Z Drainage of Bladder with Drainage Device, Via Natural or Artificial Opening (ICD-10-PCS; principal; 2018-02-26)
DX: N40.1 Benign prostatic hyperplasia with lower urinary tract symptoms (principal); R33.8 Other retention of urine; J44.9 Chronic obstructive pulmonary disease, unspecified; I10 Essential (primary) hypertension; K21.9 Gastro-esophageal reflux disease without esophagitis; Z95.5 Presence of coronary angioplasty implant and graft; F17.200 Nicotine dependence, unspecified, uncomplicated
CPT/HCPCS: 81003; 99281; 99284

== ENCOUNTER 2018-03-07 22:50 | Observation (INO) | payer OTHER ==
[~2018-03-07] VITALS: Ht 172.7 cm; Wt 77.1 kg
[2018-03-07 23:26] LABS: HEMATOCRIT 43.2 % (38.0-50.0); HEMOGLOBIN 15.2 G/DL (12.5-16.6); MCH 30.5 PG (29.0-34.0); MCHC 35.2 G/DL (30.0-36.0); MCV 86.6 FL (86-99); PLATELET COUNT 174 K/uL (156-360); RBC DIS.WIDTH-CV 13.5 % (11.8-14.6); RBC DIS.WIDTH-SD 42.5 % (39-53); RED BLOOD COUNT 4.99 M/uL (4.00-5.50); WHITE BLOOD COUNT 10.7 K/uL (4.1-10.2)
[2018-03-07 23:36] LABS: INTER. NORMALIZED RATIO 1.2
[2018-03-07 23:42] LABS: CHLORIDE 105 mEq/L (99-109); POTASSIUM 3.7 mEq/L (3.7-5.4); SODIUM 137 mEq/L (136-147)
[2018-03-07 23:43] LABS: GLUCOSE 104 mg/dL (70-99)
[2018-03-07 23:47] LABS: CREATININE 0.8 mg/dL (0.6-1.3); GFR ESTIMATE (CALCULATED) > 59 mL/min/ (58.99-99999)
[2018-03-07 23:48] LABS: UREA NITROGEN (BUN) 13 mg/dL (9-23)
[2018-03-07 23:58] LABS: TROP-I INTERPRETATION NEGATIVE; TROPONIN-I 0.02 ng/mL (0.0-0.30)
[2018-03-08] MEDS ORDERED: ENTRESTO 49 MG1 EACH PO (02:09)
[2018-03-08] MEDS ORDERED: COREG12.5 M1 PO (02:12)
[2018-03-08 02:58] VITALS: BP 113/60
[2018-03-08 05:33] LABS: TROP-I INTERPRETATION INDETERMINATE; TROPONIN-I 0.36 ng/mL (0.0-0.30)
[2018-03-08 06:52] LABS: HDL CHOLESTEROL 36 MG/DL (Desirable>=40); LDL CHOLESTEROL 47 mg/dL (Desirable<100); NON-HDL CHOLESTEROL 59 mg/dL (Desirable<160); TOTAL CHOLESTEROL 95 mg/dL (Desirable<200); TRIGLYCERIDES 61 MG/DL (Normal: <150)
[2018-03-08 07:00] VITALS: BP 126/63
[2018-03-08 11:42] VITALS: BP 104/58
[2018-03-08 14:05] LABS: TROP-I INTERPRETATION INDETERMINATE; TROPONIN-I 0.59 ng/mL (0.0-0.30)
[2018-03-09 00:31] VITALS: BP 138/70
[2018-03-09 05:18] VITALS: BP 144/79
[2018-03-09 08:00] VITALS: BP 139/88
[2018-03-09] MEDS ORDERED: RANEXA500 MG PO (10:33)
[2018-03-09] MEDS ORDERED: CARVEDILOL25 MG PO (10:33)
[2018-03-09] MEDS ORDERED: METFORMIN HCL500 MG PO (10:38)
[2018-03-09 10:52] LABS: CHLORIDE 106 MEQ/L (99-109); CREATININE 0.7 MG/DL (0.6-1.3); GFR ESTIMATE (CALCULATED) > 59 mL/min/ (58.99-99999); POTASSIUM 4.1 MEQ/L (3.7-5.4); SODIUM 138 MEQ/L (136-147); UREA NITROGEN (BUN) 10 mg/dL (9-23)
[2018-03-09 10:56] LABS: GLUCOSE 188 mg/dL (70-99)
[2018-03-09 11:08] VITALS: BP 127/67
== END 2018-03-09 12:35 | disposition home or self-care (01) ==
LOC: EME → EDBD 22:50 → EME 22:50 → EDOF 03-08 00:40 → 4SOUTH 03-08 00:40 → ENRESERV 03-08 00:42 → 4SOUTH 03-08 02:33
PROVIDERS: Emergency Medicine; Hospitalist; Internal Medicine Cardiovascular Disease; Physician Assistant Medical
DX: I25.110 Atherosclerotic heart disease of native coronary artery with unstable angina pectoris (principal); Z95.5 Presence of coronary angioplasty implant and graft; I25.2 Old myocardial infarction; I25.5 Ischemic cardiomyopathy; E11.9 Type 2 diabetes mellitus without complications; E78.5 Hyperlipidemia, unspecified; J44.9 Chronic obstructive pulmonary disease, unspecified; R20.0 Anesthesia of skin; Z79.82 Long term (current) use of aspirin; N40.1 Benign prostatic hyperplasia with lower urinary tract symptoms; R33.8 Other retention of urine; I10 Essential (primary) hypertension; I27.20 Pulmonary hypertension, unspecified; Z82.49 Family history of ischemic heart disease and other diseases of the circulatory system; Z82.0 Family history of epilepsy and other diseases of the nervous system; Z79.02 Long term (current) use of antithrombotics/antiplatelets
CPT/HCPCS: 71046; 80048; 80061; 82948; 84484; 85027; 85610; 93005; 94640; 94799; 99281; 99285; C1769; C1887; G0378; J1644; J1650; J1815; J2250; J3010; J7040